=== PATIENT | male | born 1995 | race Two or more races ===

== ENCOUNTER 2025-07-11 09:15 | Day surgery (SDC) | payer MEDICAID, SELFPAY ==
[2025-07-11] VITALS (10 sets, daily range): BP systolic 101–139; BP diastolic 59–92; PULSE 66–96; RESP 12–18; TEMP 36.2–36.9; O2SAT 92–100; BMI 28.5
[2025-07-11] MEDS: RINGERS LACTATED 500 ML 500 ML 20 ML IV (11:40)
[2025-07-11] MEDS: BENZOCAINE 20% (Hurricaine) SPRAY 1 DOSE TOP (11:40)
[2025-07-11] MEDS: MIDAZOLAM INJ 1 MG/ML VIAL 2 ML (ASD USE ONLY) 2 MG IVP (11:41)
[2025-07-11] MEDS: fentaNYL CIT INJ 50 mCg/ML AMP 2ML (ASD USE ONLY) IVP (11:41)
== END 2025-07-11 12:25 | disposition home or self-care (01) ==
PROVIDERS: PCP Nurse Practitioner Family; Referring Provider Internal Medicine Gastroenterology; Visit Provider Internal Medicine Gastroenterology
PROC: (CPT 43239; principal; 2025-07-11 14:15)
DX: K22.2 Esophageal obstruction (principal); K22.89 Other specified disease of esophagus; K21.00 Gastro-esophageal reflux disease with esophagitis, without bleeding; K29.70 Gastritis, unspecified, without bleeding
CPT/HCPCS: 43249; 43239; A4649; C1726; J1200; J2250; J3010; J7120; A9270